=== PATIENT | male | born 1990 | race Caucasian/White ===

== ENCOUNTER 2018-08-12 20:02 | Emergency (ER) | payer SELFPAY ==
[~2018-08-12] VITALS: Ht 167.6 cm; Wt 91.0 kg
[2018-08-12] MEDS ORDERED: ASPIRIN 81MG TABLET PO ONE (23:45)
[2018-08-12] MEDS ORDERED: AMLODIPINE 10MG TABLET PO ONE (23:45)
[2018-08-13 00:32] LABS: BASOPHILS % 0.8 % (0.0-2.0); EOSINOPHILS % 2.1 % (0.0-5.0); HEMATOCRIT. 47.2 % (42.0-52.0); HEMOGLOBIN. 16.8 g/dL (14.0-18.0); LYMPHOCYTES % 26.1 % (20.0-50.0); MEAN CORPUSCULAR HEMOGLOBIN 29.7 pg (28.0-32.0); MEAN CORPUSCULAR VOLUME 83.5 fL (80.0-94.0); MEAN PLATELET VOLUME 9.4 fl (7.4-10.4); PLATELET 237 x1000/uL (130-400); RED BLOOD CELL COUNT 5.65 mill/uL (4.7-6.1); RED CELL DISTRIBUTION WIDTH 13.3 % (11.6-14.6)
[2018-08-13 00:36] LABS: CHLORIDE 103 mEq/L (98-107)
[2018-08-13 00:43] LABS: D-DIMER 0.2 mg/L FEU (<0.50); PARTIAL THROMBOPLASTIN TIME 27.3 sec (23.4-31.0); PROTHROMBIN TIME 10.2 sec (9.1-11.1)
[2018-08-13 04:42] VITALS: BP 188/129
== END 2018-08-13 04:49 | disposition home or self-care (01) ==
LOC: ER 20:02
DX: R07.89 Other chest pain (principal); I10 Essential (primary) hypertension; R74.8 Abnormal levels of other serum enzymes
CPT/HCPCS: 36415; 71045; 84484; 85379; 93005; 99285

== ENCOUNTER 2021-02-27 21:57 | Emergency (ER) | payer SELFPAY ==
[~2021-02-27] VITALS: Ht 167.6 cm; Wt 90.0 kg
[2021-02-27] MEDS ORDERED: MORPHINE SULFATE 4 MG/ML CPJ (NOT FOR IM USE) IV STA (22:20)
[2021-02-27] MEDS ORDERED: ONDANSETRON HCL 4MG/2ML INJ IV STA (22:20)
[2021-02-27] MEDS ORDERED: SODIUM CHLORIDE 0.9% 1,000 ML IV ONE (22:30)
[2021-02-27 22:43] LABS: BASOPHILS % 0.9 % (0.0-2.0); EOSINOPHILS % 2.9 % (0.0-5.0); HEMATOCRIT. 44.7 % (42.0-52.0); HEMOGLOBIN. 15.4 g/dL (14.0-18.0); LYMPHOCYTES % 48.2 % (20.0-50.0); MEAN CORPUSCULAR HEMOGLOBIN 28.7 pg (28.0-32.0); MEAN CORPUSCULAR VOLUME 83.4 fL (80.0-94.0); MEAN PLATELET VOLUME 9.2 fl (7.4-10.4); MONOCYTES % 9.3 % (2.0-8.0); NEUTROPHILS % 38.7 % (40.0-76.0); PLATELET 267 x1000/uL (130-400); RED BLOOD CELL COUNT 5.36 mill/uL (4.7-6.1); RED CELL DISTRIBUTION WIDTH 12.8 % (11.6-14.6)
[2021-02-27 22:48] LABS: CHLORIDE 108 mEq/L (98-107)
[2021-02-27 22:51] LABS: ETHANOL BLOOD < 10 mg/dL
[2021-02-27] MEDS ORDERED: SODIUM CHLORIDE 0.9% 1,000 ML IV NR (23:15)
[2021-02-27] MEDS ORDERED: IOHEXOL-300 100 ML BOTTLE ONE (23:32)
[2021-02-28] LABS: CLARITY URINE CLEAR (CLEAR); COLOR URINE YELLOW (YELLOW); KETONES URINE NEGATIVE (NEGATIVE); LEUKOCYTE ESTERASE URINE NEGATIVE (NEGATIVE); NITRITE URINE NEGATIVE (NEGATIVE); OCCULT BLOOD URINE 2+ (NEGATIVE); PROTEIN URINE NEGATIVE (NEGATIVE); SPECIFIC GRAVITY URINE 1.028 (1.005-1.030); UROBILINOGEN URINE 0.2 E.U./dL (0.2-1.0)
[2021-02-28 00:10] LABS: *AMPHETAMINES SCREEN URINE NEGATIVE (NEGATIVE); *BARBITURATES SCREEN URINE NEGATIVE (NEGATIVE); *BENZODIAZEPINES SCREEN URINE NEGATIVE (NEGATIVE); *COCAINE SCREEN URINE NEGATIVE (NEGATIVE); CANNABINOID URINE SCREEN NEGATIVE (NEGATIVE); PHENCYCLIDINE URINE SCREEN NEGATIVE (NEGATIVE)
[2021-02-28 00:11] LABS: METHADONE URINE SCREEN NEGATIVE (NEGATIVE); OPIATES URINE SCREEN PRESUMTIVE POSITIVE (NEGATIVE)
[2021-02-28 00:33] VITALS: BP 132/85
[2021-02-28] MEDS ORDERED: IBUP-2029 MT (00:34)
== END 2021-02-28 00:51 | disposition home or self-care (01) ==
LOC: ER 21:57
DX: N20.0 Calculus of kidney (principal); N13.30 Unspecified hydronephrosis; I10 Essential (primary) hypertension
CPT/HCPCS: 36415; 74177; 76870; 80053; 80305; 80320; 81003; 83605; 83690; 84145; 85025; 87040; 93005; 93976; 96361; 96374; 96375; 99285; J2270; J2405; J7030; Q9967; G0480